=== PATIENT | male | born 1985 | race Caucasian/White ===

== ENCOUNTER 2016-07-13 00:55 | Emergency (ER) | payer SELFPAY ==
[~2016-07-13] VITALS: Ht 182.9 cm; Wt 74.2 kg
[~2016-07-13 00:55] MED LIST: AMOXICILLIN500 MG PO; BUPRENORPHIN-N1 EACH SL; CLARITIN-D 121 EACH PO; FLONASE16 G1 BOTH NARES; LIBRIUM25 MG PO; NOHOMEMEDS; SUBOXONE
[2016-07-13] MEDS ORDERED: NAPROSYN500 MG PO (02:13)
[2016-07-13 02:40] VITALS: BP 146/93
[2016-07-14] MEDS ORDERED: THIAMINE HCL100 MG PO (13:47)
[2016-07-14] MEDS ORDERED: LIBRIUM25 MG PO (13:47)
== END 2016-07-13 02:42 | disposition home or self-care (01) ==
LOC: EME 00:55 → RME 00:55
PROC: 2W3TX1Z Immobilization of Left Foot using Splint (ICD-10-PCS; principal; 2016-07-13)
DX: S20.211A Contusion of right front wall of thorax, initial encounter (principal); S93.402A Sprain of unspecified ligament of left ankle, initial encounter; S93.602A Unspecified sprain of left foot, initial encounter; F17.200 Nicotine dependence, unspecified, uncomplicated; Y04.8XXA Assault by other bodily force, initial encounter
CPT/HCPCS: 71101; 73610; 73630; 99281; 99283

== ENCOUNTER 2016-07-14 04:01 | Emergency (ER) | payer SELFPAY ==
[~2016-07-14] VITALS: Ht 182.9 cm; Wt 72.1 kg
[~2016-07-14 04:01] MED LIST changes: +NAPROSYN500 MG PO
[2016-07-14 05:44] LABS: HEMATOCRIT 40.8 % (38.0-50.0); MCH 31.6 PG (29.0-34.0); MCHC 34.1 G/DL (30.0-36.0); MCV 92.7 FL (86-99); MEAN PLAT.VOLUME 10.2 uM^3 (9.0-12.4); PLATELET COUNT 203 K/uL (156-360); RBC DIS.WIDTH-CV 16.6 % (11.8-14.6); RBC DIS.WIDTH-SD 55.1 % (39-53); WHITE BLOOD COUNT 6.3 K/uL (4.1-10.2)
[2016-07-14 05:47] LABS: CHLORIDE 110 mEq/L (99-109); POTASSIUM 3.5 mEq/L (3.7-5.4); SODIUM 146 mEq/L (136-147)
[2016-07-14 05:49] LABS: GLUCOSE 105 mg/dL (70-99)
[2016-07-14 05:50] LABS: ANION GAP 10 MEQ/L (2-14)
[2016-07-14 05:52] LABS: SERUM ETHYL ALCOHOL 311 mg/dL
[2016-07-14 05:53] LABS: GFR ESTIMATE (CALCULATED) > 59 mL/min/
[2016-07-14 05:55] LABS: UREA NITROGEN (BUN) 10 mg/dL (9-23)
[2016-07-14 05:56] LABS: SALICYLATE < 5.0 MG/DL (15-30)
[2016-07-14 10:52] LABS: ADD MIUA? NO; BILIRUBIN SMALL; BLOOD NEGATIVE; COLOR DK YELLOW ((YELLOW)); GLUCOSE (STRIP) NEGATIVE; KETONES NEGATIVE; LEUKOCYTES NEGATIVE; NITRITE NEGATIVE; PH, URINE 6.5 (5-8); PROTEIN (STRIP) TRACE; SPECIFIC GRAVITY 1.023 (1.000-1.030); UCUL ADDED? NO
[2016-07-14 11:01] LABS: AMPHETAMINE NEGATIVE (500 ng/mL); COCAINE NEGATIVE (150 ng/mL); METHAMPHETAMINE NEGATIVE (500 ng/mL); OPIATES (MORPHINE) NEGATIVE (100 ng/mL); PHENCYCLIDINE NEGATIVE (25 ng/mL); THC CANNABINOIDS NEGATIVE (50 ng/mL)
[2016-07-14 11:02] LABS: ADD MEDTOX COMMENT Y; BARBITURATES NEGATIVE (200 ng/mL); BENZODIAZEPINES PRESUMPTIVE POSITIVE (150 ng/mL); INTERNAL CONTROLS VALID? YES; METHADONE NEGATIVE (200 ng/mL); OXYCODONE NEGATIVE (100 ng/mL); PROPOXYPHENE NEGATIVE (300 ng/mL); TRICYCLIC ANTIDEPRESSANTS NEGATIVE (300 ng/mL)
[2016-07-14 12:02] LABS: BENZODIAZEPINES, URINE SCREEN POSITIVE (200 ng/mL)
[2016-07-14] MEDS ORDERED: THIAMINE HCL100 MG PO (13:47)
[2016-07-14] MEDS ORDERED: LIBRIUM25 MG PO (13:47)
[2016-07-14 14:03] VITALS: BP 147/73
== END 2016-07-14 14:05 | disposition home or self-care (01) ==
LOC: EME 04:01
PROVIDERS: Emergency Medicine
DX: F10.129 Alcohol abuse with intoxication, unspecified (principal); Y90.8 Blood alcohol level of 240 mg/100 ml or more; F32.9 Major depressive disorder, single episode, unspecified; R45.851 Suicidal ideations; F17.200 Nicotine dependence, unspecified, uncomplicated
CPT/HCPCS: 80048; 81003; 84999; 85027; 90837; 99281; 99285; G0480

== ENCOUNTER 2016-07-21 15:27 | Emergency (ER) | payer SELFPAY ==
[~2016-07-21] VITALS: Ht 182.9 cm; Wt 73.0 kg
[~2016-07-21 15:27] MED LIST changes: +THIAMINE HCL100 MG PO
[2016-07-21 21:00] VITALS: BP 133/72
== END 2016-07-21 21:05 | disposition home or self-care (01) ==
LOC: EME 15:27
DX: F10.129 Alcohol abuse with intoxication, unspecified (principal)
CPT/HCPCS: 99281; 99285; J1630; J2060; J2310

== ENCOUNTER 2016-07-22 21:09 | Emergency (ER) | payer SELFPAY ==
[~2016-07-22] VITALS: Ht 185.4 cm; Wt 69.5 kg
[2016-07-22 23:29] LABS: HEMATOCRIT 43.3 % (38.0-50.0); MCH 32.4 PG (29.0-34.0); MCHC 33.7 G/DL (30.0-36.0); MEAN PLAT.VOLUME 9.2 uM^3 (9.0-12.4); PLATELET COUNT 238 K/uL (156-360); RBC DIS.WIDTH-CV 16.6 % (11.8-14.6); RBC DIS.WIDTH-SD 55.6 % (39-53); RED BLOOD COUNT 4.51 M/uL (4.00-5.50); WHITE BLOOD COUNT 8.1 K/uL (4.1-10.2)
[2016-07-22 23:45] LABS: CHLORIDE 110 mEq/L (99-109); POTASSIUM 3.8 mEq/L (3.7-5.4); SODIUM 144 mEq/L (136-147)
[2016-07-22 23:48] LABS: GLUCOSE 88 mg/dL (70-99)
[2016-07-22 23:49] LABS: ANION GAP 14 MEQ/L (2-14); TOTAL BILIRUBIN 0.6 mg/dL (0.0-1.0)
[2016-07-22 23:50] LABS: SERUM ETHYL ALCOHOL 216 mg/dL
[2016-07-22 23:51] LABS: GFR ESTIMATE (CALCULATED) > 59 mL/min/
[2016-07-22 23:52] LABS: ALKALINE PHOSPHATASE 126 IU/L (3-129)
[2016-07-22 23:53] LABS: UREA NITROGEN (BUN) 9 mg/dL (9-23)
[2016-07-22 23:55] LABS: SALICYLATE < 5.0 MG/DL (15-30)
[2016-07-23 02:42] LABS: ADD MIUA? YES; BILIRUBIN NEGATIVE; BLOOD MODERATE; COLOR YELLOW ((YELLOW)); GLUCOSE (STRIP) NEGATIVE; KETONES NEGATIVE; LEUKOCYTES NEGATIVE; NITRITE NEGATIVE; PROTEIN (STRIP) NEGATIVE; SPECIFIC GRAVITY 1.017 (1.000-1.030)
[2016-07-23 02:52] LABS: COCAINE NEGATIVE (150 ng/mL); METHAMPHETAMINE NEGATIVE (500 ng/mL); OPIATES (MORPHINE) NEGATIVE (100 ng/mL); PHENCYCLIDINE NEGATIVE (25 ng/mL); THC CANNABINOIDS PRESUMPTIVE POSITIVE (50 ng/mL)
[2016-07-23 02:53] LABS: ADD MEDTOX COMMENT Y; AMPHETAMINE NEGATIVE (500 ng/mL); BARBITURATES NEGATIVE (200 ng/mL); BENZODIAZEPINES PRESUMPTIVE POSITIVE (150 ng/mL); INTERNAL CONTROLS VALID? YES; METHADONE NEGATIVE (200 ng/mL); OXYCODONE NEGATIVE (100 ng/mL); PROPOXYPHENE NEGATIVE (300 ng/mL); TRICYCLIC ANTIDEPRESSANTS NEGATIVE (300 ng/mL)
[2016-07-23 03:01] LABS: EPITHELIAL CELLS RARE; MUCUS RARE; WHITE BLOOD CELLS 0-5 /HPF (0-5)
[2016-07-23 03:02] LABS: BACTERIA 1+; CASTS NONE SEEN /LPF; CRYSTALS NONE SEEN; UCUL ADDED? NO
[2016-07-23 03:24] LABS: BENZODIAZEPINES, URINE SCREEN POSITIVE (200 ng/mL)
[2016-07-23 04:35] VITALS: BP 148/90
== END 2016-07-23 04:36 | disposition home or self-care (01) ==
LOC: EME 21:09
PROVIDERS: Emergency Medicine
DX: F32.9 Major depressive disorder, single episode, unspecified (principal); F10.129 Alcohol abuse with intoxication, unspecified; Y90.7 Blood alcohol level of 200-239 mg/100 ml; R45.851 Suicidal ideations; F41.9 Anxiety disorder, unspecified; F90.9 Attention-deficit hyperactivity disorder, unspecified type; F11.10 Opioid abuse, uncomplicated; F17.200 Nicotine dependence, unspecified, uncomplicated; Z71.6 Tobacco abuse counseling
CPT/HCPCS: 80053; 81003; 84999; 85027; 90837; 99281; 99284; G0480

== ENCOUNTER 2016-07-24 18:35 | Inpatient (IN) | payer SELFPAY ==
[~2016-07-24] VITALS: Ht 182.9 cm; Wt 72.7 kg
[2016-07-24 19:45] LABS: HEMATOCRIT 42.3 % (38.0-50.0); MCH 32.5 PG (29.0-34.0); MCV 95.5 FL (86-99); MEAN PLAT.VOLUME 9.2 uM^3 (9.0-12.4); PLATELET COUNT 286 K/uL (156-360); RBC DIS.WIDTH-CV 16.4 % (11.8-14.6); RBC DIS.WIDTH-SD 54.8 % (39-53); RED BLOOD COUNT 4.43 M/uL (4.00-5.50); WHITE BLOOD COUNT 9.6 K/uL (4.1-10.2)
[2016-07-24 20:15] LABS: CHLORIDE 106 mEq/L (99-109); POTASSIUM 3.6 mEq/L (3.7-5.4); SODIUM 143 mEq/L (136-147)
[2016-07-24 20:19] LABS: ANION GAP 14 MEQ/L (2-14); TOTAL BILIRUBIN 0.5 mg/dL (0.0-1.0)
[2016-07-24 20:20] LABS: SERUM ETHYL ALCOHOL 348 mg/dL
[2016-07-24 20:21] LABS: ALKALINE PHOSPHATASE 130 IU/L (3-129); GFR ESTIMATE (CALCULATED) > 59 mL/min/
[2016-07-24 20:22] LABS: UREA NITROGEN (BUN) 15 mg/dL (9-23)
[2016-07-24 20:27] LABS: GLUCOSE 112 mg/dL (70-99)
[2016-07-25 03:32] LABS: BILIRUBIN NEGATIVE; BLOOD NEGATIVE; COLOR DK YELLOW ((YELLOW)); GLUCOSE (STRIP) NEGATIVE; KETONES NEGATIVE; LEUKOCYTES NEGATIVE; NITRITE NEGATIVE; PROTEIN (STRIP) NEGATIVE; SPECIFIC GRAVITY 1.025 (1.000-1.030)
[2016-07-25 03:34] LABS: ADD MIUA? NO
[2016-07-25 03:41] LABS: AMPHETAMINE NEGATIVE (500 ng/mL); BARBITURATES NEGATIVE (200 ng/mL); BENZODIAZEPINES PRESUMPTIVE POSITIVE (150 ng/mL); COCAINE NEGATIVE (150 ng/mL); INTERNAL CONTROLS VALID? YES; METHADONE NEGATIVE (200 ng/mL); METHAMPHETAMINE NEGATIVE (500 ng/mL); OPIATES (MORPHINE) NEGATIVE (100 ng/mL); OXYCODONE NEGATIVE (100 ng/mL); PHENCYCLIDINE NEGATIVE (25 ng/mL); PROPOXYPHENE NEGATIVE (300 ng/mL); THC CANNABINOIDS PRESUMPTIVE POSITIVE (50 ng/mL); TRICYCLIC ANTIDEPRESSANTS NEGATIVE (300 ng/mL)
[2016-07-25 03:42] LABS: ADD MEDTOX COMMENT Y
[2016-07-25 05:24] LABS: BENZODIAZEPINES, URINE SCREEN POSITIVE (200 ng/mL)
[2016-07-25 12:01] VITALS: BP 129/85
[2016-07-25 15:24] VITALS: BP 141/78
[2016-07-26 07:39] VITALS: BP 97/57
[2016-07-26 09:58] VITALS: BP 140/85
[2016-07-26 15:06] VITALS: BP 119/80
[2016-07-27 07:43] VITALS: BP 110/58
== END 2016-07-27 11:49 | DRG 881 ==
LOC: EME → EDBD 18:35 → EDOF 07-25 09:33 → 1WEST 07-25 11:52
PROVIDERS: Emergency Medicine
PROC: HZ2ZZZZ Detoxification Services for Substance Abuse Treatment (ICD-10-PCS; principal; 2016-07-25)
DX: F32.9 Major depressive disorder, single episode, unspecified (principal); R45.851 Suicidal ideations; F10.230 Alcohol dependence with withdrawal, uncomplicated; F11.10 Opioid abuse, uncomplicated; Z59.0 Homelessness; E87.6 Hypokalemia; R74.0 Nonspecific elevation of levels of transaminase and lactic acid dehydrogenase [LDH]; F12.10 Cannabis abuse, uncomplicated; F17.200 Nicotine dependence, unspecified, uncomplicated
CPT/HCPCS: 80053; 81003; 84999; 85027; 90837; 99281; 99285; G0480

== ENCOUNTER 2016-08-01 02:49 | Emergency (ER) | payer SELFPAY ==
[~2016-08-01] VITALS: Ht 182.9 cm; Wt 73.6 kg
[2016-08-01 03:43] LABS: HEMATOCRIT 41.9 % (38.0-50.0); MCH 32.9 PG (29.0-34.0); MCHC 33.9 G/DL (30.0-36.0); MCV 97.2 FL (86-99); MEAN PLAT.VOLUME 9.5 uM^3 (9.0-12.4); PLATELET COUNT 304 K/uL (156-360); RBC DIS.WIDTH-CV 15.6 % (11.8-14.6); RBC DIS.WIDTH-SD 53.9 % (39-53); RED BLOOD COUNT 4.31 M/uL (4.00-5.50); WHITE BLOOD COUNT 10.1 K/uL (4.1-10.2)
[2016-08-01 03:44] LABS: BASOPHIL COUNT 0.1 K/uL (0-0.1); EOSINOPHIL (%) 1.4 % (0-5); EOSINOPHIL COUNT 0.1 K/uL (0-0.3); IMMATURE GRANULOCYTE (%) 0.5 % (0.0-0.7); IMMATURE GRANULOCYTE COUNT 0.5 K/uL; LYMPHOCYTE COUNT 4.2 K/uL (1.0-2.8); MONOCYTE COUNT 1.3 K/uL (0-0.8); NEUTROPHIL (%) 42.4 % (45-76); NEUTROPHIL COUNT 4.3 K/uL (1.8-6.4)
[2016-08-01 03:51] LABS: CHLORIDE 110 mEq/L (99-109); POTASSIUM 3.4 mEq/L (3.7-5.4); SODIUM 146 mEq/L (136-147)
[2016-08-01 03:53] LABS: GLUCOSE 87 mg/dL (70-99)
[2016-08-01 03:54] LABS: ANION GAP 16 MEQ/L (2-14)
[2016-08-01 03:56] LABS: SERUM ETHYL ALCOHOL 246 mg/dL
[2016-08-01 03:57] LABS: GFR ESTIMATE (CALCULATED) > 59 mL/min/
[2016-08-01 03:58] LABS: UREA NITROGEN (BUN) 14 mg/dL (9-23)
[2016-08-01 10:46] VITALS: BP 139/80
== END 2016-08-01 10:40 | disposition home or self-care (01) ==
LOC: EME 02:49
PROVIDERS: Emergency Medicine
DX: F33.8 Other recurrent depressive disorders (principal); F10.129 Alcohol abuse with intoxication, unspecified; F19.94 Other psychoactive substance use, unspecified with psychoactive substance-induced mood disorder; F17.200 Nicotine dependence, unspecified, uncomplicated; Y90.8 Blood alcohol level of 240 mg/100 ml or more
CPT/HCPCS: 80048; 85025; 90837; 99281; 99283; G0480

== ENCOUNTER 2016-08-02 22:12 | Emergency (ER) | payer SELFPAY ==
[~2016-08-02] VITALS: Ht 182.9 cm; Wt 73.9 kg
[2016-08-02 23:00] LABS: HEMATOCRIT 42.9 % (38.0-50.0); MCH 32.4 PG (29.0-34.0); MCHC 33.3 G/DL (30.0-36.0); MCV 97.1 FL (86-99); PLATELET COUNT 319 K/uL (156-360); RBC DIS.WIDTH-CV 16.4 % (11.8-14.6); RBC DIS.WIDTH-SD 56.6 % (39-53); RED BLOOD COUNT 4.42 M/uL (4.00-5.50); WHITE BLOOD COUNT 10.4 K/uL (4.1-10.2)
[2016-08-02 23:09] LABS: CHLORIDE 114 mEq/L (99-109); POTASSIUM 3.5 mEq/L (3.7-5.4); SODIUM 148 mEq/L (136-147)
[2016-08-02 23:11] LABS: GLUCOSE 96 mg/dL (70-99)
[2016-08-02 23:12] LABS: ANION GAP 13 MEQ/L (2-14)
[2016-08-02 23:14] LABS: SERUM ETHYL ALCOHOL 449 mg/dL
[2016-08-02 23:15] LABS: GFR ESTIMATE (CALCULATED) > 59 mL/min/
[2016-08-02 23:16] LABS: UREA NITROGEN (BUN) 10 mg/dL (9-23)
[2016-08-03 05:01] VITALS: BP 120/80
== END 2016-08-03 05:02 | disposition home or self-care (01) ==
LOC: EME → EDBD 22:12 → EME 22:12
PROVIDERS: Emergency Medicine
DX: F10.129 Alcohol abuse with intoxication, unspecified (principal); Y90.8 Blood alcohol level of 240 mg/100 ml or more; F17.200 Nicotine dependence, unspecified, uncomplicated; Z71.6 Tobacco abuse counseling
CPT/HCPCS: 80048; 85027; 99281; 99284; G0480

== ENCOUNTER 2016-08-05 20:25 | Emergency (ER) | payer SELFPAY ==
[~2016-08-05] VITALS: Ht 182.9 cm; Wt 98.0 kg
[2016-08-05 21:00] LABS: HEMATOCRIT 44.4 % (38.0-50.0); MCH 32.7 PG (29.0-34.0); MCHC 34.2 G/DL (30.0-36.0); MCV 95.5 FL (86-99); MEAN PLAT.VOLUME 9.3 uM^3 (9.0-12.4); PLATELET COUNT 309 K/uL (156-360); RBC DIS.WIDTH-CV 15.8 % (11.8-14.6); RBC DIS.WIDTH-SD 53.3 % (39-53); RED BLOOD COUNT 4.65 M/uL (4.00-5.50); WHITE BLOOD COUNT 11.3 K/uL (4.1-10.2)
[2016-08-05 21:12] LABS: CHLORIDE 111 mEq/L (99-109); POTASSIUM 3.1 mEq/L (3.7-5.4); SODIUM 146 mEq/L (136-147)
[2016-08-05 21:13] LABS: GLUCOSE 101 mg/dL (70-99)
[2016-08-05 21:15] LABS: ANION GAP 14 MEQ/L (2-14)
[2016-08-05 21:17] LABS: GFR ESTIMATE (CALCULATED) > 59 mL/min/; SERUM ETHYL ALCOHOL 473 mg/dL
[2016-08-05 21:18] LABS: UREA NITROGEN (BUN) 8 mg/dL (9-23)
[2016-08-06 05:26] LABS: AMPHETAMINE NEGATIVE (500 ng/mL); BARBITURATES NEGATIVE (200 ng/mL); BENZODIAZEPINES PRESUMPTIVE POSITIVE (150 ng/mL); COCAINE NEGATIVE (150 ng/mL); METHADONE NEGATIVE (200 ng/mL); METHAMPHETAMINE NEGATIVE (500 ng/mL); OPIATES (MORPHINE) NEGATIVE (100 ng/mL); OXYCODONE NEGATIVE (100 ng/mL); PHENCYCLIDINE NEGATIVE (25 ng/mL); PROPOXYPHENE NEGATIVE (300 ng/mL); THC CANNABINOIDS PRESUMPTIVE POSITIVE (50 ng/mL); TRICYCLIC ANTIDEPRESSANTS NEGATIVE (300 ng/mL)
[2016-08-06 05:27] LABS: ADD MEDTOX COMMENT Y; INTERNAL CONTROLS VALID? YES
[2016-08-06 06:38] LABS: BENZODIAZEPINES, URINE SCREEN POSITIVE (200 ng/mL)
[2016-08-06 12:56] VITALS: BP 127/75
== END 2016-08-06 12:55 | disposition home or self-care (01) ==
LOC: EME 20:25
PROVIDERS: Emergency Medicine
DX: F19.94 Other psychoactive substance use, unspecified with psychoactive substance-induced mood disorder (principal); F10.129 Alcohol abuse with intoxication, unspecified; Y90.8 Blood alcohol level of 240 mg/100 ml or more; F17.200 Nicotine dependence, unspecified, uncomplicated
CPT/HCPCS: 80048; 84999; 85027; 90837; 99281; 99285; G0480

== ENCOUNTER 2016-08-25 19:48 | Inpatient (IN) | payer SELFPAY ==
[~2016-08-25] VITALS: Ht 182.9 cm; Wt 73.3 kg
[2016-08-25 20:23] LABS: HEMATOCRIT 41.2 % (38.0-50.0); MCH 32.8 PG (29.0-34.0); MCHC 34.7 G/DL (30.0-36.0); MCV 94.5 FL (86-99); RBC DIS.WIDTH-SD 53.2 % (39-53); RED BLOOD COUNT 4.36 M/uL (4.00-5.50)
[2016-08-25 20:35] LABS: CHLORIDE 101 mEq/L (99-109); POTASSIUM 3.4 mEq/L (3.7-5.4); SODIUM 139 mEq/L (136-147)
[2016-08-25 20:37] LABS: GLUCOSE 130 mg/dL (70-99)
[2016-08-25 20:38] LABS: ANION GAP 18 MEQ/L (2-14)
[2016-08-25 20:40] LABS: SERUM ETHYL ALCOHOL 71 mg/dL
[2016-08-25 20:41] LABS: GFR ESTIMATE (CALCULATED) > 59 mL/min/
[2016-08-25 20:42] LABS: UREA NITROGEN (BUN) 9 mg/dL (9-23)
[2016-08-25 20:57] LABS: MEAN PLAT.VOLUME 10.2 uM^3 (9.0-12.4)
[2016-08-25 21:13] LABS: PLATELET COUNT 133 K/uL (156-360)
[2016-08-25 23:29] LABS: ADD MEDTOX COMMENT Y; AMPHETAMINE NEGATIVE (500 ng/mL); BARBITURATES NEGATIVE (200 ng/mL); BENZODIAZEPINES PRESUMPTIVE POSITIVE (150 ng/mL); COCAINE NEGATIVE (150 ng/mL); INTERNAL CONTROLS VALID? YES; METHADONE NEGATIVE (200 ng/mL); METHAMPHETAMINE NEGATIVE (500 ng/mL); OPIATES (MORPHINE) NEGATIVE (100 ng/mL); OXYCODONE NEGATIVE (100 ng/mL); PHENCYCLIDINE NEGATIVE (25 ng/mL); PROPOXYPHENE NEGATIVE (300 ng/mL); THC CANNABINOIDS PRESUMPTIVE POSITIVE (50 ng/mL); TRICYCLIC ANTIDEPRESSANTS NEGATIVE (300 ng/mL)
[2016-08-26 06:23] LABS: BENZODIAZEPINES QUANT VALUE 0 NG/ML
[2016-08-26 06:25] LABS: BENZODIAZEPINES, URINE SCREEN Negative (200 ng/mL)
[2016-08-26 07:37] LABS: HEMATOCRIT 40.8 % (38.0-50.0); MCH 32.5 PG (29.0-34.0); MCHC 33.6 G/DL (30.0-36.0); MCV 96.7 FL (86-99); RBC DIS.WIDTH-CV 15.8 % (11.8-14.6); RBC DIS.WIDTH-SD 53.9 % (39-53); RED BLOOD COUNT 4.22 M/uL (4.00-5.50); WHITE BLOOD COUNT 7.3 K/uL (4.1-10.2)
[2016-08-26 08:27] LABS: ALKALINE PHOSPHATASE 103 IU/L (3-129); ANION GAP 9 MEQ/L (2-14); CHLORIDE 101 MEQ/L (99-109); GFR ESTIMATE (CALCULATED) > 59 mL/min/; POTASSIUM 3.6 MEQ/L (3.7-5.4); SAMPLE HEMOLYSIS CHECK 0; SAMPLE ICTERIC CHECK 0; SAMPLE LIPEMIA CHECK 0; SODIUM 136 MEQ/L (136-147); TOTAL BILIRUBIN 2.2 MG/DL (0.0-1.0); UREA NITROGEN (BUN) 7 mg/dL (9-23)
[2016-08-26 08:30] LABS: GLUCOSE 78 mg/dL (70-99)
[2016-08-26 08:40] LABS: MEAN PLAT.VOLUME 10.4 uM^3 (9.0-12.4); PLATELET COUNT 90 K/uL (156-360)
[2016-08-26 08:48] LABS: HBSG INDEX 0.18
[2016-08-26 08:49] LABS: ANTI-HEPATITIS A VIRUS (IGM) Nonreactive
[2016-08-26 08:50] LABS: ANTI-HEPATITIS B CORE (IGM) Nonreactive; HBC IgM INDEX 0.09; HIV INDEX 0.05; HIV-1/2 AB/AG COMBO Nonreactive; HPCA INDEX 12.47
[2016-08-26 17:25] VITALS: BP 151/105
== END 2016-08-26 17:30 | disposition left against medical advice (07) | DRG 894 ==
LOC: EME 19:48 → EDOF 22:50
PROVIDERS: Internal Medicine
PROC: HZ2ZZZZ Detoxification Services for Substance Abuse Treatment (ICD-10-PCS; principal; 2016-08-25)
DX: F10.230 Alcohol dependence with withdrawal, uncomplicated (principal); E87.6 Hypokalemia; E87.2 Acidosis; R73.9 Hyperglycemia, unspecified; Z91.19 Patient's noncompliance with other medical treatment and regimen; F31.9 Bipolar disorder, unspecified; F90.0 Attention-deficit hyperactivity disorder, predominantly inattentive type; F17.200 Nicotine dependence, unspecified, uncomplicated
CPT/HCPCS: 80048; 80053; 80074; 80306 90; 84999; 85027; 86703; 93005; 99281; 99285; G0480; J1644; J3360; J3411; J3475; J3480; J7030

== ENCOUNTER 2016-10-09 18:39 | Emergency (ER) | payer SELFPAY ==
[2016-10-09 19:01] LABS: BASOPHIL COUNT 0.1 K/uL (0-0.1); EOSINOPHIL (%) 1.2 % (0-5); EOSINOPHIL COUNT 0.1 K/uL (0-0.3); HEMATOCRIT 47.8 % (38.0-50.0); IMMATURE GRANULOCYTE (%) 0.7 % (0.0-0.7); IMMATURE GRANULOCYTE COUNT 0.1 K/uL; INSTRUMENT ABS NEUTROPHIL CT 3.7 K/uL; LYMPHOCYTE COUNT 3.4 K/uL (1.0-2.8); MCH 33.5 PG (29.0-34.0); MCHC 33.1 G/DL (30.0-36.0); MCV 101.5 FL (86-99); MEAN PLAT.VOLUME 9.6 uM^3 (9.0-12.4); MONOCYTE (%) 14.3 % (3-12); MONOCYTE COUNT 1.2 K/uL (0-0.8); NEUTROPHIL (%) 43.2 % (45-76); NEUTROPHIL COUNT 3.7 K/uL (1.8-6.4); PLATELET COUNT 159 K/uL (156-360); RBC DIS.WIDTH-CV 14.9 % (11.8-14.6); RBC DIS.WIDTH-SD 56.7 % (39-53); RED BLOOD COUNT 4.71 M/uL (4.00-5.50); WHITE BLOOD COUNT 8.5 K/uL (4.1-10.2)
[2016-10-09 19:12] LABS: AMYLASE 54 IU/L (1-118); CHLORIDE 110 mEq/L (99-109); POTASSIUM 3.8 mEq/L (3.7-5.4); SODIUM 147 mEq/L (136-147)
[2016-10-09 19:14] LABS: GLUCOSE 136 mg/dL (70-99)
[2016-10-09 19:15] LABS: ANION GAP 15 MEQ/L (2-14)
[2016-10-09 19:17] LABS: SERUM ETHYL ALCOHOL 392 mg/dL
[2016-10-09 19:18] LABS: GFR ESTIMATE (CALCULATED) > 59 mL/min/
[2016-10-09 19:19] LABS: UREA NITROGEN (BUN) 14 mg/dL (9-23)
[2016-10-09 19:21] LABS: LIPASE 61 U/L (1.0-51.0)
[2016-10-09] MEDS ORDERED: MOTRIN800 MG PO (21:52)
[2016-10-09] MEDS ORDERED: AUGMENTIN875 MG PO (21:52)
== END 2016-10-09 22:21 | disposition left against medical advice (07) ==
LOC: EME → TRA 18:39 → EME 18:39 → TRA 22:21
PROVIDERS: Emergency Medicine
PROC: 0HQBXZZ Repair Right Upper Arm Skin, External Approach (ICD-10-PCS; principal; 2016-10-09)
DX: S41.111A Laceration without foreign body of right upper arm, initial encounter (principal); S09.90XA Unspecified injury of head, initial encounter; S39.91XA Unspecified injury of abdomen, initial encounter; S20.219A Contusion of unspecified front wall of thorax, initial encounter; S80.01XA Contusion of right knee, initial encounter; S80.02XA Contusion of left knee, initial encounter; S20.312A Abrasion of left front wall of thorax, initial encounter; W10.9XXA Fall (on) (from) unspecified stairs and steps, initial encounter; F10.229 Alcohol dependence with intoxication, unspecified; Y90.8 Blood alcohol level of 240 mg/100 ml or more; F17.200 Nicotine dependence, unspecified, uncomplicated
CPT/HCPCS: 70450; 71260; 72125; 74177; 80048; 81003; 82150; 83690; 85025; 86850; 86900; 86901; 99281; 99285; G0480; J0690; J1885; J2270; J2405

== ENCOUNTER 2017-01-27 11:02 | Emergency (ER) | payer OTHER ==
[~2017-01-27] VITALS: Ht 182.9 cm; Wt 74.1 kg
[~2017-01-27 11:02] MED LIST changes: +AUGMENTIN875 MG PO; +MOTRIN800 MG PO
[2017-01-27 11:30] VITALS: BP 127/95
== END 2017-01-27 11:33 ==
LOC: EME 11:02
DX: F10.129 Alcohol abuse with intoxication, unspecified (principal); F17.200 Nicotine dependence, unspecified, uncomplicated
CPT/HCPCS: 99281; 99283

== ENCOUNTER 2017-07-05 07:07 | Emergency (ER) | payer OTHER ==
[~2017-07-05] VITALS: Ht 180.3 cm; Wt 81.8 kg
[2017-07-05] MEDS ORDERED: LIBRIUM25 MG PO ×2 (10:45→21:30)
[2017-07-05] MEDS ORDERED: CATAPRES0.1 MG PO (10:45)
[2017-07-05] MEDS ORDERED: ZOFRAN ODT4 MG PO ×2 (10:45→21:38)
[2017-07-05 12:11] LABS: AMPHETAMINE NEGATIVE (500 ng/mL); BARBITURATES NEGATIVE (200 ng/mL); BENZODIAZEPINES PRESUMPTIVE POSITIVE (150 ng/mL); BUPRENORPHINE PRESUMPTIVE POSITIVE (10 ng/mL); COCAINE NEGATIVE (150 ng/mL); METHADONE NEGATIVE (200 ng/mL); METHAMPHETAMINE NEGATIVE (500 ng/mL); OPIATES (MORPHINE) NEGATIVE (100 ng/mL); OXYCODONE NEGATIVE (100 ng/mL); PHENCYCLIDINE NEGATIVE (25 ng/mL); PROPOXYPHENE NEGATIVE (300 ng/mL); THC CANNABINOIDS NEGATIVE (50 ng/mL); TRICYCLIC ANTIDEPRESSANTS NEGATIVE (300 ng/mL)
[2017-07-05 12:22] LABS: HEMATOCRIT 42.5 % (38.0-50.0); HEMOGLOBIN 14.9 G/DL (12.5-16.6); MCH 30.5 PG (29.0-34.0); MCHC 35.1 G/DL (30.0-36.0); MCV 86.9 FL (86-99); PLATELET COUNT 100 K/uL (156-360); RBC DIS.WIDTH-CV 14.1 % (11.8-14.6); RBC DIS.WIDTH-SD 43.6 % (39-53); RED BLOOD COUNT 4.89 M/uL (4.00-5.50); WHITE BLOOD COUNT 8.1 K/uL (4.1-10.2)
[2017-07-05 12:36] LABS: CHLORIDE 99 mEq/L (99-109); POTASSIUM 3.8 mEq/L (3.7-5.4); SODIUM 134 mEq/L (136-147)
[2017-07-05 12:37] LABS: GLUCOSE 157 mg/dL (70-99)
[2017-07-05 12:41] LABS: CREATININE 0.7 mg/dL (0.6-1.3); GFR ESTIMATE (CALCULATED) > 59 mL/min/ (58.99-99999); SERUM ETHYL ALCOHOL 160 mg/dL
[2017-07-05 12:42] LABS: UREA NITROGEN (BUN) 16 mg/dL (9-23)
[2017-07-05 12:52] LABS: BENZODIAZEPINES, URINE SCREEN Negative (200 ng/mL)
[2017-07-05] MEDS ORDERED: CLONIDINE HCL0.1 MG PO (21:38)
[2017-07-05 22:07] VITALS: BP 150/90
== END 2017-07-05 22:12 | disposition home or self-care (01) ==
LOC: EME 07:07
PROVIDERS: Nurse Practitioner Family
DX: F10.239 Alcohol dependence with withdrawal, unspecified (principal); F11.20 Opioid dependence, uncomplicated; R45.851 Suicidal ideations; Y90.6 Blood alcohol level of 120-199 mg/100 ml; F32.9 Major depressive disorder, single episode, unspecified; F41.9 Anxiety disorder, unspecified; F90.9 Attention-deficit hyperactivity disorder, unspecified type; F17.200 Nicotine dependence, unspecified, uncomplicated
CPT/HCPCS: 80048; 84999; 85027; 90839; 99281; 99285; G0480; J2060; J7030

== ENCOUNTER 2017-07-07 01:11 | Emergency (ER) | payer OTHER ==
[~2017-07-07] VITALS: Ht 180.3 cm; Wt 80.0 kg
[~2017-07-07 01:11] MED LIST changes: +CATAPRES0.1 MG PO; +CLONIDINE HCL0.1 MG PO; +ZOFRAN ODT4 MG PO
[2017-07-07 05:58] LABS: CHLORIDE 103 mEq/L (99-109); POTASSIUM 3.4 mEq/L (3.7-5.4); SODIUM 138 mEq/L (136-147)
[2017-07-07 06:03] LABS: CREATININE 0.6 mg/dL (0.6-1.3); GFR ESTIMATE (CALCULATED) > 59 mL/min/ (58.99-99999); SERUM ETHYL ALCOHOL 166 mg/dL
[2017-07-07 06:04] LABS: UREA NITROGEN (BUN) 6 mg/dL (9-23)
[2017-07-07 06:19] LABS: GLUCOSE 103 mg/dL (70-99)
[2017-07-07 08:09] LABS: HEMATOCRIT 43.7 % (38.0-50.0); HEMOGLOBIN 14.9 G/DL (12.5-16.6); MCH 30.3 PG (29.0-34.0); MCHC 34.1 G/DL (30.0-36.0); MCV 88.8 FL (86-99); RBC DIS.WIDTH-CV 14.4 % (11.8-14.6); RBC DIS.WIDTH-SD 46.5 % (39-53); RED BLOOD COUNT 4.92 M/uL (4.00-5.50); WHITE BLOOD COUNT 4.5 K/uL (4.1-10.2)
[2017-07-07 08:45] LABS: BASOPHIL (%) 0.2 % (0-1); EOSINOPHIL (%) 0.9 % (0-5); IMMATURE GRANULOCYTE (%) 0.2 % (0.0-0.7); MONOCYTE (%) 14.2 % (3-12); MONOCYTE COUNT 0.6 K/uL (0-0.8); NEUTROPHIL (%) 40.5 % (45-76); NEUTROPHIL COUNT 1.8 K/uL (1.8-6.4); PLAT.SUFFICIENCY DECREASED
[2017-07-07 08:46] LABS: PLATELET COUNT 65 K/uL (156-360)
[2017-07-07 11:34] VITALS: BP 112/72
== END 2017-07-07 11:46 | disposition home or self-care (01) ==
LOC: EME → EDBD 01:11 → EME 11:46
PROVIDERS: Emergency Medicine
DX: F10.129 Alcohol abuse with intoxication, unspecified (principal); F19.94 Other psychoactive substance use, unspecified with psychoactive substance-induced mood disorder; R45.1 Restlessness and agitation; F32.9 Major depressive disorder, single episode, unspecified; Y90.6 Blood alcohol level of 120-199 mg/100 ml; F17.200 Nicotine dependence, unspecified, uncomplicated
CPT/HCPCS: 80048; 82948; 85025; 90839; 99281; 99285; G0480; J1630; J2060

== ENCOUNTER 2017-07-10 22:04 | Emergency (ER) | payer OTHER ==
[~2017-07-10] VITALS: Ht 182.9 cm; Wt 78.7 kg
[2017-07-10 23:01] LABS: HEMATOCRIT 43.9 % (38.0-50.0); MCH 31.3 PG (29.0-34.0); MCHC 34.2 G/DL (30.0-36.0); MCV 91.5 FL (86-99); RBC DIS.WIDTH-CV 16.1 % (11.8-14.6); RBC DIS.WIDTH-SD 53.1 % (39-53)
[2017-07-10 23:07] LABS: PLATELET COUNT 152 K/uL (156-360)
[2017-07-10 23:11] LABS: ALBUMIN 4.2 g/dL (3.2-4.8)
[2017-07-10 23:12] LABS: CHLORIDE 111 mEq/L (99-109); POTASSIUM 3.7 mEq/L (3.7-5.4)
[2017-07-10 23:14] LABS: GLUCOSE 112 mg/dL (70-99); TOTAL PROTEIN 7.8 g/dL (6.4-8.3)
[2017-07-10 23:16] LABS: TOTAL BILIRUBIN 0.3 mg/dL (0.0-1.0)
[2017-07-10 23:17] LABS: ALKALINE PHOSPHATASE 108 IU/L (3-129)
[2017-07-10 23:18] LABS: CREATININE 0.7 mg/dL (0.6-1.3); GFR ESTIMATE (CALCULATED) > 59 mL/min/ (58.99-99999)
[2017-07-10 23:19] LABS: AST (GOT) 134 IU/L (2-34); UREA NITROGEN (BUN) 8 mg/dL (9-23)
[2017-07-10 23:20] LABS: ALT (GPT) 172 IU/L (3-49)
[2017-07-10 23:21] LABS: LIPASE 105 U/L (1.0-51.0); SODIUM 147 mEq/L (136-147)
[2017-07-11 06:56] VITALS: BP 112/76
== END 2017-07-11 07:01 | disposition home or self-care (01) ==
LOC: EME → EDBD 22:04 → EME 22:04
PROVIDERS: Emergency Medicine
DX: F10.121 Alcohol abuse with intoxication delirium (principal); R00.0 Tachycardia, unspecified; F17.200 Nicotine dependence, unspecified, uncomplicated
CPT/HCPCS: 80053; 83690; 85027; 99281; 99285; J7030

== ENCOUNTER 2017-07-11 18:08 | Emergency (ER) | payer OTHER ==
[~2017-07-11] VITALS: Ht 177.8 cm; Wt 75.4 kg
[2017-07-11 22:14] VITALS: BP 110/66
== END 2017-07-11 21:50 | disposition home or self-care (01) ==
LOC: EME 18:08
DX: F10.121 Alcohol abuse with intoxication delirium (principal); Y90.9 Presence of alcohol in blood, level not specified; F17.200 Nicotine dependence, unspecified, uncomplicated; F90.9 Attention-deficit hyperactivity disorder, unspecified type; F32.9 Major depressive disorder, single episode, unspecified
CPT/HCPCS: 99281; 99284